=== PATIENT | female | born 1945 | race Caucasian/White ===

== ENCOUNTER 2018-06-04 09:05 | Day surgery (SDC) | payer BC ==
[~2018-06-04] VITALS: Ht 162.6 cm; Wt 72.0 kg
[2018-06-04] MEDS ORDERED: metformin (09:56)
[2018-06-04] MEDS ORDERED: [UNRECOGNIZED DRUG - OTHER] (09:56)
[2018-06-04] MEDS ORDERED: lantus (09:56)
[2018-06-04] MEDS ORDERED: atorvastatin (09:56)
[2018-06-04] MEDS ORDERED: multivitamin (09:56)
[2018-06-04] MEDS ORDERED: losartan (09:56)
[2018-06-04] MEDS ORDERED: jardiance (09:56)
[2018-06-04] MEDS ORDERED: aspirin (09:56)
[2018-06-04 10:01] VITALS: Ht 162.6 cm; Wt 72.0 kg
--- NOTE | 2018-06-04 10:27 | PREAC ---
Date/Time of Note Date/Time of Note DATE: 06/04/18 TIME: 10:24 Anesthesia Eval and Record Evaluation Time Pre-Procedure Interview DATE: 06/04/18 TIME: 10:24 Age 73 Sex female NPO: 8 hrs Preoperative diagnosis Positive Occult Blood in stool Planned procedure Colonoscopy Past Medical History Past Medical History: Includes Cardio: HTN, Dyslipidemia, Other (Moderate Aortic Stenosis) Endo: Diabetes Pulm: Other (Hx of Lung Nodule) Renal: Other (kidney stone) Surgery & Anesthesia Issues No known issue Meds Anticoagulation: No Beta Mariela within 24 hr: No Reason Beta Mariela not given: Pt. not on B-Mariela Reported Medications [multivitamin] No Conflict Check 06/04/18 [gluc-chondroitin] No Conflict Check 06/04/18 [aspirin] No Conflict Check 06/04/18 [atorvastatin] No Conflict Check 06/04/18 [losartan] No Conflict Check 06/04/18 [lantus] No Conflict Check 06/04/18 [jardiance] No Conflict Check 06/04/18 [metformin] No Conflict Check 06/04/18 Meds reviewed: Yes Allergies Coded Allergies: Sulfa (Sulfonamide Antibiotics) (Verified Allergy, Unknown, 06/04/18) Allergies Reviewed: Yes Labs/Studies Labs Reviewed: Reviewed by anesthesiologist test: N/A Studies: ECG (n/a), CXR (n/a) Pre-procedure Exam Airway: Adequate mouth opening, Adequate thyromental dist Mallampati: Mallampati II Teeth: Normal Lung: Normal Heart: Normal ASA Physical Status ASA physical status: 3 Emergency: None Planned Anesthetic General/MAC: MAC Planned Pain Management Parenteral pain med Pre-operative Attestations Prior to commencing anesthesia and surgery, the patient was re-evaluated, there was verification of: *The patient's identity *The results of appropriate recent lab work and preoperative vital signs *The above evaluation not changing prior to induction *Anesthetic plan, risk benefits, alternative and complications discussed with patient/family; questions answered; patient/family understands, accepts and wishes to proceed. LESLI WU MD Jun 04, 2018 10:27
[2018-06-04] MEDS ORDERED: PHENYLephrine (100 MCG/ML) 5ML SYG ONE (10:35)
[2018-06-04] MEDS ORDERED: PROPOFOL 20 ML ONE ×2 (10:35→13:16)
[2018-06-04] MEDS ORDERED: MIDAZOLAM 1 MG/ML 2 ML INJ ONE (10:36)
[2018-06-04] MEDS ORDERED: FENTAnyl 50 MCG/ML VIAL ONE (10:36)
[2018-06-04 10:49] VITALS: BP 130/59; PULSE 72; RESP 13
--- NOTE | 2018-06-04 11:53 | PAC ---
Date/Time of Note Date/Time of Note DATE: 06/04/18 TIME: 11:53 Post-Anesthesia Notes Post-Anesthesia Note Last documented vital signs T: 98.0 Activity: WNL Respiratory function: WNL Cardiovascular function: WNL Mental status: Baseline Pain reasonably controlled: Yes Hydration appropriate: Yes Nausea/Vomiting absent: Yes LESLI WU MD Jun 04, 2018 11:53
== END 2018-06-04 11:51 | disposition home or self-care (01) ==
LOC: GIL 09:05
PROVIDERS: ATTEND Internal Medicine Gastroenterology
DX: R19.5 Other fecal abnormalities (principal); K64.8 Other hemorrhoids; I10 Essential (primary) hypertension; E11.9 Type 2 diabetes mellitus without complications; E78.5 Hyperlipidemia, unspecified
CPT/HCPCS: 45378; 82962; J2250; J2370; J3010; Z7610